=== PATIENT | male | born 1955 | race Caucasian/White ===

== ENCOUNTER 2018-07-25 16:57 | Emergency (ER) | payer BC ==
[~2018-07-25] VITALS: Ht 185.4 cm; Wt 95.4 kg
[2018-07-25] MEDS ORDERED: LIDOCAINE 2% MDV 20 ML VIAL SC ONE (17:15)
[2018-07-25] MEDS ORDERED: NEOSPORIN TOP OINT 15GM TOP ONE (18:00)
[2018-07-25 18:14] VITALS: BP 126/72
[2018-07-25] MEDS ORDERED: NEOSPORIN OINT 0.9 GM PKT (FLOOR STOCK) TOP ONE (18:15)
== END 2018-07-25 18:33 | disposition home or self-care (01) ==
LOC: M ED 16:57
DX: S61.211A Laceration without foreign body of left index finger without damage to nail, initial encounter (principal); Y92.814 Boat as the place of occurrence of the external cause; Y93.19 Activity, other involving water and watercraft; E11.9 Type 2 diabetes mellitus without complications